=== PATIENT | female | born 1950 | race Hispanic/Latino ===

== ENCOUNTER 2022-04-27 05:34 | Observation (INO) | payer MEDICARE ==
[2022-04-26 15:31] VITALS: BP 163/85
[2022-04-26 15:33] LABS: BASOPHILS % (AUTO) 0.3 % (0.0-5.0); EOSINOPHILS % (AUTO) 1.2 % (0.0-8.0); HEMATOCRIT 42.4 % (36-48); LYMPHOCYTES % (AUTO) 32.8 % (21.0-51.0); MEAN CORPUSCULAR HEMOGLOBIN 28.4 pg (27.0-33.0); MEAN CORPUSCULAR HGB CONC 31.6 g/dL (32.0-36.0); MEAN CORPUSCULAR VOLUME 89.8 fL (79-99); MONOCYTES % (AUTO) 11.7 % (3.0-13.0); NEUTROPHILS % (AUTO) 53.7 % (40.0-77.0); PLATELET COUNT (AUTO) 205 K/uL (130-400); RED BLOOD CELL COUNT(AUTO) 4.72 MIL/uL (4.00-5.50); RED CELL DISTRIBUTION WIDTH 15.2 % (11.0-15.5); WHITE BLOOD COUNT (AUTO) 7.6 K/uL (4.8-10.8)
[2022-04-26 15:47] LABS: APPEARANCE,URINE CLEAR (CLEAR); BILIRUBIN,URINE NEGATIVE (NEGATIVE); COLOR,URINE COLORLESS (YELLOW); GLUCOSE, URINE (UA) NEGATIVE (NEGATIVE); KETONES,URINE NEGATIVE (NEGATIVE); LEUKOCYTE ESTERASE ,URINE 75 Leu/uL (NEGATIVE); NITRATE,URINE NEGATIVE (NEGATIVE); OCCULT BLOOD,URINE NEGATIVE (NEGATIVE); PH,URINE 5.5 (5.0-8.0); PROTEIN,URINE NEGATIVE (NEGATIVE); UROBILINOGEN,URINE 0.2 mg/dL (0.2-1.0)
[2022-04-26 15:56] LABS: BACTERIA,URINE RARE /HPF (None Seen); MUCUS,URINE RARE LPF (None Seen); RBC,URINE 0-1 /HPF (0-1); SQUAMOUS EPITHELIAL CELL,UR FEW /HPF (0-2)
[2022-04-26 16:06] LABS: INR 0.94 (0.85-1.15); PROTHROMBIN TIME 10.3 SEC (9.6-11.6)
[2022-04-26 16:07] LABS: PARTIAL THROMBOPLASTIN TIME 28.2 SEC (26.3-35.5)
[2022-04-27] VITALS (24 sets, daily range): BP systolic 127–169; BP diastolic 63–96
[~2022-04-27] VITALS: Ht 149.9 cm; Wt 71.3 kg
[~2022-04-27 05:34] MED LIST: PRAV40TA3 PO; VITA1CAP85 PO
[2022-04-27] MEDS ORDERED: CEFAZOLIN SODIUM 2 GM VIAL IVPB SCH (06:00)
[2022-04-27] MEDS ORDERED: LACTATED RINGERS 1000ML 1,000 ML IV ONE (06:43)
[2022-04-27] MEDS ORDERED: CEFAZOLIN SODIUM 1 GM VIAL ONE (06:43)
[2022-04-27] MEDS ORDERED: CEFAZOLIN SODIUM 2 GM VIAL IVPB ONE (07:59)
[2022-04-27] MEDS ORDERED: GLYCOPYRROLATE 1 MG/5 ML SYRINGE ONE (08:00)
[2022-04-27] MEDS ORDERED: ONDANSETRON 4MG INJ ONE ×2 (08:00→10:46)
[2022-04-27] MEDS ORDERED: PROPOFOL 10 MG/ML 20ML VIAL IV ONE (08:00)
[2022-04-27] MEDS ORDERED: NEOSTIGMINE 5MG/5ML SYR IV ONE (08:00)
[2022-04-27] MEDS ORDERED: DEXAMETHASONE SOD PHOSPHATE 10MG/ML 1ML VIAL ONE (08:00)
[2022-04-27] MEDS ORDERED: MIDAZOLAM HCL 1 MG/ML 2ML VIAL ONE (08:00)
[2022-04-27] MEDS ORDERED: SUCCINYLCHOLINE 200MG/10ML SYR ONE (08:00)
[2022-04-27] MEDS ORDERED: LIDOCAINE PF 100MG/5ML (2%) SYRINGE 5ML ONE (08:00)
[2022-04-27] MEDS ORDERED: FENTANYL CITRATE PF 50 MCG/1 ML 2ML VIAL ONE ×3 (08:01→09:41)
[2022-04-27] MEDS ORDERED: ROCURONIUM 10MG/1ML SYR 10 MG/ML ML ONE (08:01)
[2022-04-27] MEDS ORDERED: MEPERIDINE-PF 25 MG/ML SYG ONE ×2 (08:50→10:46)
[2022-04-27] MEDS ORDERED: IBUPROFEN 600 MG TABLET PO PRN (12:00)
[2022-04-27] MEDS ORDERED: ACETAMINOPHEN WITH CODEINE 1 TAB TAB PO PRN (12:00)
[2022-04-27] MEDS ORDERED: MEPERIDINE-PF 75 MG/ML SYG IM PRN (12:00)
[2022-04-27] MEDS ORDERED: PROMETHAZINE HCL 25 MG/ML 1ML AMPULE IM PRN ×2 (12:00)
[2022-04-27] MEDS ORDERED: BISACODYL 10 MG SUPP.RECT RC PRN (12:00)
[2022-04-27] MEDS ORDERED: ONDANSETRON 4MG INJ IVP PRN (12:00)
[2022-04-27] MEDS: DEXTROSE 5 %-0.45 % NACL 1,000 ML IV PRN (13:21)
[2022-04-27] MEDS: SIMETHICONE 80 MG TAB.CHEW PO PRN (21:12)
[2022-04-27] MEDS: DOCUSATE SODIUM 100 MG CAP PO PRN (21:12)
[2022-04-28] MEDS: DEXTROSE 5 %-0.45 % NACL 1,000 ML IV PRN (00:16)
[2022-04-28 03:09] VITALS: BP 128/72
[2022-04-28] MEDS ORDERED: ACETAMINOPHEN WITH CODEINE 1 TAB TAB PO PRN (04:00)
[2022-04-28] MEDS ORDERED: HYDROCODONE/ACETAMINOPHEN 5/325 MG TAB PO PRN (04:00)
[2022-04-28 05:49] LABS: HEMATOCRIT 38.2 % (36-48); MEAN CORPUSCULAR HEMOGLOBIN 28.2 pg (27.0-33.0); MEAN CORPUSCULAR HGB CONC 32.5 g/dL (32.0-36.0); RED BLOOD CELL COUNT(AUTO) 4.39 MIL/uL (4.00-5.50); RED CELL DISTRIBUTION WIDTH 14.9 % (11.0-15.5); WHITE BLOOD COUNT (AUTO) 13.3 K/uL (4.8-10.8)
[2022-04-28] MEDS: IBUPROFEN 800 MG TAB PO PRN ×2 (06:33→14:14)
[2022-04-28 07:18] VITALS: BP 172/81
[2022-04-28] MEDS: NITROFURANTOIN MONOHYD/M-CRYST 100 MG CAPSULE PO SCH ×2 (08:51→21:00)
[2022-04-28] MEDS: DOCUSATE SODIUM 100 MG CAP PO PRN (08:51)
[2022-04-28] MEDS: SIMETHICONE 80 MG TAB.CHEW PO PRN (08:51)
[2022-04-28 12:19] VITALS: BP 162/88
[2022-04-28 15:55] VITALS: BP 139/68
[2022-04-28 19:50] VITALS: BP 110/70
[2022-04-28 23:16] VITALS: BP 119/48
[2022-04-29 03:18] VITALS: BP 129/76
[2022-04-29 07:40] VITALS: BP 118/74
[2022-04-29] MEDS: SIMETHICONE 80 MG TAB.CHEW PO PRN (08:12)
[2022-04-29] MEDS: NITROFURANTOIN MONOHYD/M-CRYST 100 MG CAPSULE PO SCH (08:12)
[2022-04-29] MEDS: DOCUSATE SODIUM 100 MG CAP PO PRN (08:13)
[2022-04-29] MEDS: IBUPROFEN 800 MG TAB PO PRN (08:15)
[2022-04-29 11:20] VITALS: BP 126/74
== END 2022-04-29 13:20 | disposition home or self-care (01) ==
LOC: DAH 05:34 → DAHIP 05:35 → WSH 11:05
PROVIDERS: ADMIT Obstetrics & Gynecology; ATTEND Obstetrics & Gynecology
DX: N81.3 Complete uterovaginal prolapse (principal); Z20.822 Contact with and (suspected) exposure to COVID-19; I10 Essential (primary) hypertension; E78.5 Hyperlipidemia, unspecified; K46.9 Unspecified abdominal hernia without obstruction or gangrene; Z90.710 Acquired absence of both cervix and uterus; Z79.899 Other long term (current) drug therapy; Z98.890 Other specified postprocedural states
CPT/HCPCS: 85025; 85610; 85730; 86850; 86900; 86901; 87088; 87426; 81001; 36415 ×2; 93005; 58263; 57260; 85027; A6260; G0378 ×49; G0379; A4663; A4606; A4452; A4344; J7120; J3010 ×3; J0690 ×2; J0330; J3490; J1100; J2710; J2001; J2250; J2704; J2405 ×2; J2175 ×2; C1771; A4351; G0168; A4215; A4223; A4222; A4221; A4600; A4510